=== PATIENT | male | born 1970 | race Caucasian/White ===

== ENCOUNTER → 2016-09-15 | Outpatient (CLI) | payer BC ==
--- NOTE | 2016-09-17 07:30 | SLEEPCENT ---
DATE OF PROCEDURE: 09/15/2016 ORDERED BY: Renee Parker Nocturnal polysomnography was performed for the titration of pressure therapy in this patient with obstructive sleep apnea syndrome and apnea-hypopnea index of 10.9. For testing, the patient was fit with a Respironics nasal comfort gel mask of medium size and 5 cm of water pressure were applied to the circuit and the lights were extinguished. 8 hours and 12 minutes of data were reviewed. There were 362 minutes of sleep identified. Sleep latency was mildly prolonged at 19 minutes. Rapid eye movement (REM) latency was short at 66 minutes. Sleep architecture improved over the course of the study. Overall sleep efficiency was 74.5%. The patient's electrocardiogram (EKG) showed a sinus rhythm with an average heart rate of 70 beats per minute. Electroencephalogram (EEG) showed normal waveforms for awake and sleep. Respiratory events were fully palliated with CPAP at a pressure of +9. CPAP tolerance was good. Remaining measures of sleep physiology were normal. IMPRESSION: Obstructive sleep apnea syndrome (G47.33). RECOMMENDATION: Nightly use of pressure therapy at 9 cm of water.
== END ==
LOC: M SLEEP 19:46
PROVIDERS: ATTEND Nurse Practitioner Adult Health
DX: G47.33 Obstructive sleep apnea (adult) (pediatric) (principal)

== ENCOUNTER → 2017-03-14 | Outpatient (CLI) | payer BC ==
[2017-03-14 14:55] LABS: ANION GAP 5 MEQ/L (8-16); BLOOD UREA NITROGEN 13 MG/DL (7-18); CALCIUM LEVEL 8.4 MG/DL (8.5-10.1); CARBON DIOXIDE LEVEL 29 MEQ/L (21-32); CHLORIDE LEVEL 105 MEQ/L (98-107); CHOLESTEROL LEVEL 166 MG/DL (<200); CREATININE FOR GFR 0.89 MG/DL (0.70-1.30); GLOMERULAR FILTRATION RATE > 60.0 (>60); GLUCOSE, FASTING 93 MG/DL (70-105); POTASSIUM SERUM 3.9 MEQ/L (3.5-5.1); SODIUM LEVEL 139 MEQ/L (136-145); TRIGLYCERIDES LEVEL 73 MG/DL (<150)
== END ==
LOC: M SMT 08:40
PROVIDERS: ATTEND Physician Assistant Medical
DX: G47.33 Obstructive sleep apnea (adult) (pediatric) (principal); I10 Essential (primary) hypertension; Z12.5 Encounter for screening for malignant neoplasm of prostate
CPT/HCPCS: 36415; 80048; 80061; G0103

== ENCOUNTER → 2017-04-27 | Outpatient (REF) | payer BC | LOC: M LAB REF 13:12 | PROVIDERS: ATTEND Emergency Medicine | DX: D48.5 Neoplasm of uncertain behavior of skin (principal) ==

== ENCOUNTER → 2019-05-23 | Outpatient (CLI) | payer BC ==
[2019-05-23 13:26] LABS: BASO % 0.7 % (0.0-1.0); EOS % 0.9 % (0.0-3.0); HEMATOCRIT 46.7 % (42.0-52.0); HEMOGLOBIN 15.8 g/dl (13.5-17.5); LYMPH # 1.8 10^3/uL (1.5-5.0); LYMPH % 41.7 % (24.0-44.0); MEAN CORPUSCULAR HEMOGLOBIN 31.2 pg (27.0-33.0); MEAN CORPUSCULAR HGB CONC 33.8 g/dl (32.0-36.5); MEAN CORPUSCULAR VOLUME 92.1 fl (80.0-96.0); MONO # 0.3 10^3/uL (0.0-0.8); MONO % 7.1 % (0.0-5.0); NEUTROPHILS # 2.2 10^3/uL (1.5-8.5); NEUTROPHILS % 49.4 % (36.0-66.0); PLATELET COUNT, AUTOMATED 133 10^3/uL (150-450); RED BLOOD COUNT 5.07 10^6/uL (4.30-6.10); WHITE BLOOD COUNT 4.4 10^3/uL (4.0-10.0)
[2019-05-23 13:46] LABS: ALBUMIN 3.6 GM/DL (3.2-5.2); ALT/SGPT 22 U/L (12-78); BILIRUBIN,TOTAL 0.8 MG/DL (0.2-1.0); BLOOD UREA NITROGEN 11 MG/DL (7-18); CALCIUM LEVEL 8.7 MG/DL (8.5-10.1); CARBON DIOXIDE LEVEL 32 MEQ/L (21-32); CHLORIDE LEVEL 105 MEQ/L (98-107); CHOLESTEROL LEVEL 165 MG/DL (<200); CHOLESTEROL RISK RATIO 2.796 (<5); CREATININE FOR GFR 0.87 MG/DL (0.70-1.30); GLOMERULAR FILTRATION RATE > 60.0 (>60); GLUCOSE, FASTING 88 MG/DL (70-100); HDL CHOLESTEROL 59 MG/DL (>40); LDL CHOLESTEROL 89 MG/DL (<100); NON-HDL-C 106 MG/DL; POTASSIUM SERUM 4.4 MEQ/L (3.5-5.1); SODIUM LEVEL 141 MEQ/L (136-145); TOTAL PROTEIN 6.5 GM/DL (6.4-8.2); TRIGLYCERIDES LEVEL 84 MG/DL (<150)
== END ==
LOC: M SMT 08:43
PROVIDERS: ATTEND Physician Assistant Medical
DX: I10 Essential (primary) hypertension (principal)

== ENCOUNTER → 2020-07-28 | Outpatient (CLI) | payer BC ==
[2020-07-28 10:29] LABS: BASO % 0.7 % (0.0-1.0); EOS % 0.5 % (0.0-3.0); HEMATOCRIT 45.2 % (42.0-52.0); HEMOGLOBIN 14.9 g/dl (13.5-17.5); LYMPH # 1.5 10^3/uL (1.5-5.0); MEAN CORPUSCULAR VOLUME 90.9 fl (80.0-96.0); MONO # 0.3 10^3/uL (0.0-0.8); MONO % 7.2 % (0.0-5.0); NEUTROPHILS # 2.5 10^3/uL (1.5-8.5); NEUTROPHILS % 57.1 % (36.0-66.0); PLATELET COUNT, AUTOMATED 177 10^3/uL (150-450); RED BLOOD COUNT 4.97 10^6/uL (4.30-6.10); WHITE BLOOD COUNT 4.4 10^3/uL (4.0-10.0)
[2020-07-28 11:14] LABS: ALBUMIN 3.7 GM/DL (3.2-5.2); ALT/SGPT 35 U/L (12-78); BILIRUBIN,TOTAL 0.7 MG/DL (0.2-1.0); BLOOD UREA NITROGEN 16 MG/DL (7-18); CALCIUM LEVEL 8.6 MG/DL (8.5-10.1); CARBON DIOXIDE LEVEL 30 MEQ/L (21-32); CHLORIDE LEVEL 106 MEQ/L (98-107); CHOLESTEROL LEVEL 183 MG/DL (<200); CHOLESTEROL RISK RATIO 2.614 (<5); CREATININE FOR GFR 0.88 MG/DL (0.70-1.30); GLOMERULAR FILTRATION RATE > 60.0 (>60); GLUCOSE, FASTING 84 MG/DL (70-100); HDL CHOLESTEROL 70 MG/DL (>40); LDL CHOLESTEROL 103 MG/DL (<100); NON-HDL-C 113 MG/DL; POTASSIUM SERUM 4.2 MEQ/L (3.5-5.1); SODIUM LEVEL 139 MEQ/L (136-145); TOTAL PROTEIN 6.8 GM/DL (6.4-8.2); TRIGLYCERIDES LEVEL 48 MG/DL (<150)
== END ==
LOC: M PLALAB 08:26
PROVIDERS: ATTEND Nurse Practitioner Family
DX: G47.33 Obstructive sleep apnea (adult) (pediatric) (principal); I10 Essential (primary) hypertension

== ENCOUNTER → 2021-07-31 | Outpatient (CLI) | payer BC ==
[2021-07-31 11:24] LABS: ALBUMIN 3.6 GM/DL (3.2-5.2); ALT/SGPT 36 U/L (12-78); BILIRUBIN,TOTAL 0.6 MG/DL (0.2-1.0); BLOOD UREA NITROGEN 14 MG/DL (7-18); CALCIUM LEVEL 8.8 MG/DL (8.5-10.1); CARBON DIOXIDE LEVEL 31 MEQ/L (21-32); CHLORIDE LEVEL 107 MEQ/L (98-107); CHOLESTEROL LEVEL 183 MG/DL (<200); CHOLESTEROL RISK RATIO 2.904 (<5); CREATININE FOR GFR 0.84 MG/DL (0.70-1.30); GLOMERULAR FILTRATION RATE > 60.0 (>60); GLUCOSE, FASTING 104 MG/DL (70-100); HDL CHOLESTEROL 63 MG/DL (>40); LDL CHOLESTEROL 107 MG/DL (<100); NON-HDL-C 120 MG/DL; POTASSIUM SERUM 5.1 MEQ/L (3.5-5.1); SODIUM LEVEL 139 MEQ/L (136-145); TOTAL PROTEIN 6.7 GM/DL (6.4-8.2); TRIGLYCERIDES LEVEL 65 MG/DL (<150)
== END ==
LOC: M PLALAB 08:28
PROVIDERS: ATTEND Nurse Practitioner Family
DX: I10 Essential (primary) hypertension (principal)

== ENCOUNTER → 2022-08-03 | Outpatient (CLI) | payer BC ==
[2022-08-03 11:35] LABS: ALBUMIN 3.9 G/DL (3.2-5.2); ALKALINE PHOSPHATASE 45 U/L (46-116); ALT/SGPT 34 U/L (7.0-40); AST/SGOT 24 U/L (<34); BLOOD UREA NITROGEN 16 MG/DL (9-23); CALCIUM LEVEL 8.7 MG/DL (8.5-10.1); CARBON DIOXIDE LEVEL 29 MMOL/L (20-31); CHLORIDE LEVEL 106 MMOL/L (98-107); CHOLESTEROL LEVEL 185 MG/DL (<200); CREATININE FOR GFR 0.82 MG/DL (0.70-1.30); GLOMERULAR FILTRATION RATE > 60.0 (>56); GLUCOSE, FASTING 93 MG/DL (60-100); HDL CHOLESTEROL 63.6 MG/DL (>40); NON-HDL-C 121 MG/DL; POTASSIUM SERUM 4.1 MMOL/L (3.5-5.1); SODIUM LEVEL 140 MMOL/L (136-145); TOTAL PROTEIN 6.6 G/DL (5.7-8.2); TRIGLYCERIDES LEVEL 92 MG/DL (<150)
== END ==
LOC: M PLALAB 08:38
PROVIDERS: ATTEND Nurse Practitioner Family
DX: I10 Essential (primary) hypertension (principal)

== ENCOUNTER → 2024-12-27 | Day surgery (SDC) | payer BC ==
[~2024-12-27] VITALS: Ht 177.8 cm; Wt 103.2 kg
[~2024-12-27] MED LIST: LIDOCAINE 2% 100MG/5ML SDV (FOR ANES.) As Ordered ONE; LOSA25TA13 PO; THERTAB52 PO; propofoL 200 MG/20 ML VIAL As Ordered ONE
[2024-12-27 12:16] VITALS: TEMP 97.3
[2024-12-27 12:32] VITALS: BP 149/80; O2SAT 98
== END | disposition home or self-care (01) ==
LOC: M OPP 10:27
PROVIDERS: ATTEND Surgery
DX: Z12.11 Encounter for screening for malignant neoplasm of colon (principal); D12.0 Benign neoplasm of cecum; D12.4 Benign neoplasm of descending colon; Z88.2 Allergy status to sulfonamides; I10 Essential (primary) hypertension; G47.30 Sleep apnea, unspecified; Z99.89 Dependence on other enabling machines and devices